=== PATIENT | male | born 1970 | race Hispanic/Latino ===

== ENCOUNTER → 2023-11-29 | Outpatient (CLI) | payer OTHER | END | disposition home or self-care (01) | LOC: SHCH 11:20 | PROVIDERS: ATTEND Internal Medicine Cardiovascular Disease | DX: I70.293 Other atherosclerosis of native arteries of extremities, bilateral legs (principal); Z89.511 Acquired absence of right leg below knee | CPT/HCPCS: 93925 ==

== ENCOUNTER 2023-12-31 18:16 | Observation (INO) | payer OTHER ==
[2023-12-31 18:30] VITALS: BP 96/64; PULSE 57; RESP 18
[2023-12-31 18:35] VITALS: O2SAT 97
[2023-12-31] MEDS ORDERED: ACETAMINOPHEN 650 MG SUPPOSITORY RC PRN (19:00)
[2023-12-31] MEDS ORDERED: DOCUSATE SODIUM 100 MG CAP PO PRN (19:00)
[2023-12-31] MEDS ORDERED: TEMAZEPAM 15 MG CAPSULE PO PRN (19:00)
[2023-12-31] MEDS ORDERED: IPRATROPIUM/ALBUTEROL SULFATE 3 ML SOLUTION IH PRN (19:00)
[2023-12-31] MEDS ORDERED: ONDANSETRON 4MG INJ IVP PRN (19:00)
[2023-12-31] MEDS ORDERED: LACTULOSE 20 GM/30 ML UDCUP PO PRN (19:00)
[2023-12-31] MEDS ORDERED: ACETAMINOPHEN 325 MG TAB PO PRN (19:00)
[2023-12-31] MEDS ORDERED: HYDRALAZINE 20MG/ML VIAL IV PRN (19:00)
[2023-12-31 19:21] LABS: BASOPHILS # (AUTO) 0.05 K/uL (0.00-0.20); BASOPHILS % (AUTO) 0.8 % (0.0-5.0); EOSINOPHILS # (AUTO) 0.23 K/uL (0.00-0.70); EOSINOPHILS % (AUTO) 3.5 % (0.0-8.0); HEMATOCRIT 36.3 % (42-54); IMMATURE GRANULOCYTE ABSOLUTE 0.01 K/uL (0-1); LYMPHOCYTES # (AUTO) 2.2 K/uL (1.0-4.8); LYMPHOCYTES % (AUTO) 34.2 % (21.0-51.0); MEAN CORPUSCULAR HEMOGLOBIN 29.8 pg (27.0-33.0); MEAN CORPUSCULAR HGB CONC 33.6 g/dL (32.0-36.0); MEAN CORPUSCULAR VOLUME 88.8 fL (79-99); MONOCYTES # (AUTO) 0.4 K/uL (0.1-1.0); MONOCYTES % (AUTO) 5.9 % (3.0-13.0); NEUTROPHILS # (AUTO) 3.6 K/uL (1.8-7.7); NEUTROPHILS % (AUTO) 55.4 % (40.0-77.0); PLATELET COUNT (AUTO) 195 K/uL (130-400); RED BLOOD CELL COUNT(AUTO) 4.09 MIL/uL (4.50-6.20); RED CELL DISTRIBUTION WIDTH 14.3 % (11.0-15.5); WHITE BLOOD COUNT (AUTO) 6.5 K/uL (4.8-10.8)
[2023-12-31 19:34] LABS: CREATININE 0.7 mg/dL (0.5-1.3); POTASSIUM 4.1 mmol/L (3.5-5.1)
[2023-12-31 19:39] LABS: B-TYPE NATRIURETIC PEPTIDE 15 pg/mL (0-100)
[2023-12-31 19:44] LABS: ALBUMIN 3.5 g/dL (3.5-5.0); BILIRUBIN,TOTAL 0.2 mg/dL (0.2-1.0); TOTAL PROTEIN, SERUM 7.1 g/dL (6.0-8.3)
[2023-12-31 20:00] VITALS: BP 104/64; PULSE 54; RESP 17
[2023-12-31] MEDS: LACTATED RINGERS 1000ML 1,000 ML IV SCH (20:53)
[2023-12-31 20:57] VITALS: O2SAT 98
[2023-12-31] MEDS: INSULIN HUMULIN R 100 UNIT/ML 3ML SQ SCH (21:00)
[2023-12-31] MEDS ORDERED: CLOT30SO2 (21:14)
[2023-12-31] MEDS ORDERED: ROSU20TA73 PO (21:14)
[2023-12-31] MEDS ORDERED: METF-910 PO (21:14)
[2023-12-31] MEDS ORDERED: TAMSULOSIN PO (21:14)
[2023-12-31] MEDS ORDERED: ESCI-8 PO (21:14)
[2023-12-31] MEDS ORDERED: LEVE750T10 PO (21:14)
[2023-12-31] MEDS ORDERED: INSU100I24 SQ (21:14)
[2023-12-31] MEDS ORDERED: LISI10TA24 PO (21:14)
[2023-12-31] MEDS ORDERED: AMLO-258 PO (21:14)
[2023-12-31] MEDS ORDERED: METO25 PO (21:14)
[2023-12-31] MEDS: PANTOPRAZOLE 40 MG/VIAL IVP SCH (21:35)
[2023-12-31] MEDS: PEG 3350/NA SULF,BICARB,CL/KCL 4000 ML SOLN PO ONE (21:35)
[2023-12-31] MEDS: LEVETIRACETAM 500 MG TABLET PO SCH (21:43)
[2024-01-01] VITALS (8 sets, daily range): BP systolic 108–145; BP diastolic 63–77; PULSE 64–94; RESP 17–19; O2SAT 98
[2024-01-01 05:48] LABS: BASOPHILS # (AUTO) 0.04 K/uL (0.00-0.20); BASOPHILS % (AUTO) 0.6 % (0.0-5.0); EOSINOPHILS # (AUTO) 0.17 K/uL (0.00-0.70); EOSINOPHILS % (AUTO) 2.5 % (0.0-8.0); HEMATOCRIT 35.4 % (42-54); IMMATURE GRANULOCYTE ABSOLUTE 0.02 K/uL (0-1); LYMPHOCYTES # (AUTO) 2.1 K/uL (1.0-4.8); LYMPHOCYTES % (AUTO) 31.5 % (21.0-51.0); MEAN CORPUSCULAR HEMOGLOBIN 28.8 pg (27.0-33.0); MEAN CORPUSCULAR HGB CONC 32.2 g/dL (32.0-36.0); MEAN CORPUSCULAR VOLUME 89.4 fL (79-99); MONOCYTES # (AUTO) 0.4 K/uL (0.1-1.0); MONOCYTES % (AUTO) 5.9 % (3.0-13.0); NEUTROPHILS % (AUTO) 59.2 % (40.0-77.0); PLATELET COUNT (AUTO) 199 K/uL (130-400); RED BLOOD CELL COUNT(AUTO) 3.96 MIL/uL (4.50-6.20); RED CELL DISTRIBUTION WIDTH 14.1 % (11.0-15.5); WHITE BLOOD COUNT (AUTO) 6.8 K/uL (4.8-10.8)
[2024-01-01] MEDS: DEXTROSE 5%-LACTATED RINGERS 1,000 ML IV SCH (06:20)
[2024-01-01] MEDS: DEXTROSE 50%-WATER 50 ML DISP.SYRIN IV ONE (06:20)
[2024-01-01 06:34] LABS: CREATININE 0.6 mg/dL (0.5-1.3); MAGNESIUM 1.6 mg/dL (1.80-2.40); PHOSPHORUS 3.9 mg/dL (2.5-4.9); POTASSIUM 3.9 mmol/L (3.5-5.1)
[2024-01-01] MEDS ORDERED: TAMSULOSIN 0.4 MG PO SCH (09:00)
[2024-01-01] MEDS ORDERED: NON-FORMULARY MEDICATION 1 EACH (Escitalopram Oxalate 1 TAB) PO SCH (09:00)
[2024-01-01] MEDS: TAMSULOSIN HCL 0.4 MG CAP.ER.24H PO SCH (09:00)
[2024-01-01] MEDS ORDERED: POTASSIUM CHLORIDE 20MEQ/100ML 100 ML IV PRN ×3 (09:00→10:30)
[2024-01-01] MEDS ORDERED: MAGNESIUM 2GM PREMIX 50ML 50 ML IV PRN (09:00)
[2024-01-01] MEDS: CITALOPRAM 20 MG TABLET PO SCH (09:00)
[2024-01-01] MEDS: MAGNESIUM 2GM PREMIX 50ML 50 ML IV SCH (09:23)
[2024-01-01 10:05] LABS: INR 1.05 (0.85-1.15); PROTHROMBIN TIME 11.3 SEC (9.6-11.6)
[2024-01-01] MEDS ORDERED: DEXTROSE 50%-WATER 50 ML DISP.SYRIN IV PRN (10:30)
[2024-01-01] MEDS ORDERED: POTASSIUM CHLORIDE 10% ELIXIR 20 MEQ/15 ML UDCUP PO PRN (10:30)
[2024-01-01] MEDS ORDERED: GLUCAGON 1MG KIT 1 MG ML IM PRN (10:30)
[2024-01-01] MEDS ORDERED: KCL 20 MEQ ERTAB PO PRN (10:30)
[2024-01-01 11:05] LABS: ABG BASE EXCESS -3.2 mmol/L (-2.0-3.0); ABG HCO3 21.3 mmol/L (21.0-28.0); ABG OXYGEN SATURATION 97.1 % (95.0-99.0); ABG PCO2 37 mmHg (35-48); ABG PH 7.381 (7.35-7.450); DEVICE COMMENT RN IRIS; PO2, ARTERIAL BG 93.8 mmHg (83.0-108.0); VENT MODE, BG RA (ROOM AIR)
[2024-01-01 11:12] LABS: ADD UA MICROSCOPIC YES; APPEARANCE,URINE CLEAR (CLEAR); BILIRUBIN,URINE NEGATIVE (NEGATIVE); COLOR,URINE COLORLESS (YELLOW); GLUCOSE, URINE (UA) NEGATIVE (NEGATIVE); KETONES,URINE NEGATIVE (NEGATIVE); LEUKOCYTE ESTERASE ,URINE NEGATIVE Leu/uL (NEGATIVE); NITRATE,URINE NEGATIVE (NEGATIVE); OCCULT BLOOD,URINE SMALL (NEGATIVE); PROTEIN,URINE 200 mg/dL (NEGATIVE); UROBILINOGEN,URINE 0.2 mg/dL (0.2-1.0)
[2024-01-01 11:18] LABS: WBC,URINE 26-50 /HPF (0-1)
[2024-01-01] MEDS ORDERED: COMPOUND IV MISC 1 EACH IVSOLN MISC PRN (12:00)
[2024-01-01] MEDS: LEVETIRACETAM 500 MG in 0.9%NACL 100ML 100 ML IV SCH (14:17)
[2024-01-01] MEDS: PEG 3350/NA SULF,BICARB,CL/KCL 4000 ML SOLN PO ONE (14:18)
[2024-01-01] MEDS: ATORVASTATIN 40 MG TABLET PO SCH (20:43)
[2024-01-01] MEDS ORDERED: NON-FORMULARY MEDICATION 1 EACH (Rosuvastatin Calcium 1 TAB) PO SCH (21:00)
[2024-01-02] VITALS (22 sets, daily range): BP systolic 124–168; BP diastolic 70–92; PULSE 57–73; RESP 15–20; O2SAT 97
== END 2024-01-02 19:05 | disposition home or self-care (01) ==
LOC: INTOOBSV 18:25 → 3BH 18:25
PROVIDERS: ADMIT Internal Medicine Critical Care Medicine; ATTEND Internal Medicine Critical Care Medicine
DX: K62.1 Rectal polyp (principal); K59.09 Other constipation; D64.9 Anemia, unspecified; E86.0 Dehydration; I10 Essential (primary) hypertension; E11.9 Type 2 diabetes mellitus without complications; E78.5 Hyperlipidemia, unspecified; G40.909 Epilepsy, unspecified, not intractable, without status epilepticus; H54.8 Legal blindness, as defined in USA; Z86.73 Personal history of transient ischemic attack (TIA), and cerebral infarction without residual deficits; Z89.511 Acquired absence of right leg below knee; Z86.16 Personal history of COVID-19; Z85.048 Personal history of other malignant neoplasm of rectum, rectosigmoid junction, and anus; Z80.0 Family history of malignant neoplasm of digestive organs; Z79.899 Other long term (current) drug therapy
CPT/HCPCS: 96361 ×2; 96375 ×2; 84484; 80053; 83880; 85025 ×2; 86850; 86900; 86901; 82948 ×9; 36415 ×2; 71045; 80177; 96376 ×2; 96365; 96366 ×2; 96368; 83735; 84100; 80048; 82803; 85610; 85730; 87086; 81001; 36600; 88305; 45385; G0378 ×46; J2470 ×4; A4600; J3475; J1953 ×2; J7070; A4620; A4215; A4223; A4222